=== PATIENT | female | born 2000 ===

== ENCOUNTER 2020-03-04 01:52 | Observation (INO) | payer OTHER ==
--- NOTE | 2020-03-04 02:05 | EDM.PDOC ---
ED HPI GENERAL MEDICAL PROBLEM - General Stated Complaint: LOWER LT ABDOMINAL PAIN Time Seen by Provider: 03/04/20 01:54 Source of Information: Reports: Patient History Limitations: Reports: No Limitations - History of Present Illness INITIAL COMMENTS - FREE TEXT/NARRATIVE: Patient is a 19-year-old female is complaining having severe left-sided abdominal pain which started approximately 10 PM tonight. Patient states the pain is severe in intensity and she is feeling nauseous though no vomiting or diarrhea. Patient has had no fever or chills. Has not had similar symptoms in the past. She denies any dysuria or hematuria. She has not taken anything for current pain symptoms. Patient is pacing the room and appears very uncomfortable. No past surgical history and she is not sexually active. Onset: Today Duration: Getting Worse Location: Reports: Abdomen Quality: Reports: Ache, Sharp Severity: Severe Improves with: Reports: None Worsens with: Reports: None Associated Symptoms: Reports: No Other Symptoms Left Flank Pain Score (Numeric/FACES): 9 - Related Data Allergies Allergy/AdvReac Type Severity Reaction Status Date / Time No Known Allergies Allergy Verified 03/04/20 02:06 Home Meds: Home Meds . [No Known Home Meds] 03/04/20 [History] ED ROS GENERAL - Review of Systems Review Of Systems: Comprehensive ROS is negative, except as noted in HPI. ED EXAM, GI/ABD - Physical Exam Exam: See Below Exam Limited By: No Limitations General Appearance: Moderate Distress, Other (Secondary to abdominal pain.) Head: Atraumatic, Normocephalic Neck: Normal Inspection, Supple Respiratory/Chest: No Respiratory Distress, Lungs Clear, Normal Breath Sounds, No Accessory Muscle Use Cardiovascular: Regular Rate, Rhythm, No JVD GI/Abdominal Exam: Normal Bowel Sounds, Soft, No Organomegaly, Tender. No: Distended, Guarding, Rebound, Abnormal Bowel Sounds Back Exam: Normal Inspection. No: CVA Tenderness (L), CVA Tenderness (R) Extremities: Normal Inspection Neurological: Alert, Oriented Psychiatric: Normal Affect Skin Exam: Warm, Dry, Normal Color Course - Vital Signs Text/Narrative:: She has a mildly elevated white blood cell count. CT scan shows she has a very large right adnexal cystic cyst that is approximately 14 x 9 x 11 cm. Her kidneys and ureters were both normal. Patient required multiple doses of pain meds including Toradol fentanyl and Dilaudid to get her under control of her pain symptoms. She was discussed with Dr. Shelby who is on-call for [facility] who wanted a Doppler ultrasound. That shows no blood flow to the right adnexa. Dr. Shelby is planning to take her to surgery this morning and will do an obvious admission. She is aware of this plan. Her pain is under good control at this moment. Last Recorded V/S: Last Vital Signs Temp 36.7 C 03/04/20 01:54 Pulse 98 03/04/20 01:54 Resp 20 03/04/20 01:54 BP Pulse Ox 98 03/04/20 01:54 - Orders/Labs/Meds Orders: Active Orders 24 hr Category Date Time Status Admission Status [Patient Status] [ADT] Stat ADT 03/04/20 06:21 Ordered Labs: Laboratory Tests 03/04/20 03/04/20 03/04/20 Range/Units 02:10 02:10 04:00 WBC 13.96 H (4.0-11.0) K/uL RBC 4.68 (4.30-5.90) M/uL Hgb 14.1 (12.0-16.0) g/dL Hct 40.1 (36.0-46.0) % MCV 85.7 (80.0-98.0) fL MCH 30.1 (27.0-32.0) pg MCHC 35.2 (31.0-37.0) g/dL RDW Std Deviation 37.7 (28.0-62.0) fl RDW Coeff of [place] 12 (11.0-15.0) % Plt Count 222 (150-400) K/uL MPV 10.00 (7.40-12.00) fL Neut % (Auto) 79.6 (48.0-80.0) % Lymph % (Auto) 15.6 L (16.0-40.0) % [place] % (Auto) 3.5 (0.0-15.0) % Eos % (Auto) 1.2 (0.0-7.0) % Baso % (Auto) 0.1 (0.0-1.5) % Neut # (Auto) 11.1 H (1.4-5.7) K/uL Lymph # (Auto) 2.2 (0.6-2.4) K/uL [place] # (Auto) 0.5 (0.0-0.8) K/uL Eos # (Auto) 0.2 (0.0-0.7) K/uL Baso # (Auto) 0.0 (0.0-0.1) K/uL Nucleated RBC % 0.0 /100WBC Nucleated RBCs # 0 K/uL Sodium 137 (136-145) mmol/L Potassium 3.3 L (3.5-5.1) mmol/L Chloride 101 (98-107) mmol/L Carbon Dioxide 23.7 (21.0-32.0) mmol/L BUN 11 (7.0-18.0) mg/dL Creatinine 0.8 (0.6-1.0) mg/dL Est Cr Clr Drug Dosing 87.98 mL/min Estimated GFR (MDRD) > 60.0 ml/min Glucose 145 H (74-106) mg/dL Calcium 8.9 (8.5-10.1) mg/dL Total Bilirubin 0.4 (0.2-1.0) mg/dL AST 18 (15-37) IU/L ALT 30 (14-63) IU/L Alkaline Phosphatase 48 (46-116) U/L Total Protein 7.6 (6.4-8.2) g/dL Albumin 4.3 (3.4-5.0) g/dL Globulin 3.3 (2.6-4.0) g/dL Albumin/Globulin Ratio 1.3 (0.9-1.6) Lipase 87 (73-393) U/L HCG, Quant < 1.0 mIU/mL Urine Color YELLOW Urine Appearance SLT CLOUDY Urine pH 8.5 H (5.0-8.0) Ur Specific [place] 1.010 (1.001-1.035) Urine Protein NEGATIVE (NEGATIVE) mg/dL Urine Glucose (UA) NEGATIVE (NEGATIVE) mg/dL Urine Ketones NEGATIVE (NEGATIVE) mg/dL Urine Occult Blood NEGATIVE (NEGATIVE) Urine Nitrite NEGATIVE (NEGATIVE) Urine Bilirubin NEGATIVE (NEGATIVE) Urine Urobilinogen 0.2 (<2.0) EU/dL Ur Leukocyte Esterase TRACE H (NEGATIVE) Urine RBC 0-1 (0-2/HPF) Urine WBC 0-2 (0-5/HPF) Ur Epithelial Cells FEW (NONE-FEW) Urine Bacteria FEW (NEGATIVE) Meds: Medications Discontinued Medications Generic Name Dose Route Start Last Admin Trade Name Serene PRN Reason Stop Dose Admin Fentanyl 50 mcg 03/04/20 02:17 03/04/20 02:23 Fentanyl IVPUSH 03/04/20 02:18 50 mcg ONETIME ONE Administration Fentanyl 50 mcg 03/04/20 03:31 03/04/20 03:38 Sublimaze IVPUSH 03/04/20 03:32 50 mcg ONETIME ONE Administration Hydromorphone HCl 1 mg 03/04/20 04:29 Dilaudid IVPUSH 03/04/20 04:30 ONETIME ONE Sodium Chloride 1,000 mls @ 999 mls/hr 03/04/20 02:09 03/04/20 02:22 Normal Saline IV 03/04/20 03:09 999 mls/hr .BOLUS ONE Administration Ketorolac Tromethamine 30 mg 03/04/20 02:09 03/04/20 02:22 Toradol IVPUSH 03/04/20 02:10 30 mg ONETIME ONE Administration Departure - Departure Time of Disposition: 06:24 Disposition: Refer to Observation Condition: Good Clinical Impression: Ovarian torsion, Adnexal mass - Discharge Information Referrals: PCP,None [Primary Care Provider] - Sepsis Event Note - Focused Exam Vital Signs: Vital Signs Temp Pulse Resp Pulse Ox 03/04/20 01:54 36.7 C 98 20 98 Date Exam was Performed: 03/04/20 Time Exam was Performed: 06:24 - My Orders Last 24 Hours: My Active Orders 03/04/20 06:21 Admission Status [Patient Status] [ADT] Stat - Assessment/Plan Last 24 Hours: My Active Orders 03/04/20 06:21 Admission Status [Patient Status] [ADT] Stat
[2020-03-04] MEDS ORDERED: Sodium Chloride 0.9% 1,000 ML IV ONE (02:09)
[2020-03-04] MEDS ORDERED: Ketorolac 30 MG/ML SDV IVPUSH ONE (02:09)
[2020-03-04] MEDS ORDERED: fentaNYL 50 MCG/ML SDV IVPUSH ONE (02:17)
[2020-03-04 02:49] LABS: BLOOD UREA NITROGEN,BUN 11 mg/dL (7.0-18.0); CARBON DIOXIDE,CO2 23.7 mmol/L (21.0-32.0); CHLORIDE,CL 101 mmol/L (98-107); GLUCOSE RANDOM 145 mg/dL (74-106); LIPASE 87 U/L (73-393); POTASSIUM,K 3.3 mmol/L (3.5-5.1); SODIUM,NA 137 mmol/L (136-145)
[2020-03-04] MEDS ORDERED: fentaNYL 100 MCG/2 ML SDV IVPUSH ONE (03:31)
--- NOTE | 2020-03-04 03:50 | CT ---
INDICATION: Left lower quadrant pain TECHNIQUE: CT Abdomen and pelvis with i.v. contrast. Coronal and sagittal reformats were obtained. CONTRAST: 100 mL Isovue 370 COMPARISON: None FINDINGS: Lower chest: Unremarkable. Liver: Unremarkable. Spleen: Unremarkable. Pancreas: Unremarkable. Gallbladder: Unremarkable. Kidney: There is a 1.2 cm cyst in the lower pole of the right kidney. Both kidneys are normal in enhancement. Adrenal: Unremarkable. Bowel: Unremarkable. The appendix is normal in appearance and size. Vascular: Unremarkable. Lymph: Unremarkable. Peritoneum: Unremarkable. No pneumoperitoneum is seen. A small amount of pelvic ascites is present. Pelvis: There is a large cystic mass present in the right adnexa measuring 14.3 x 11.4 x 14.4 cm (AP x RL x CC). There is a large cystic component along its superior margin and along the inferior margin there is a region of heterogeneous, ring-like enhancement seen. Soft tissue: Unremarkable. Bone: Unremarkable for age. IMPRESSION: 1. There is a large cystic mass present in the right adnexa measuring 14.3 x 11.4 x 14.4 cm (AP x RL x CC). There is a large cystic component along its superior margin and along the inferior margin there is a region of heterogeneous, ring-like enhancement seen. Surgical consultation for resection is recommended and to exclude ovarian torsion from lead mass. Dictated by Silverio Rucker MD @ 03/04/2020 3:48:05 AM Please note that all CT scans at this facility use dose modulation, iterative reconstruction, and/or weight-based dosing when appropriate to reduce radiation dose to as low as reasonably achievable. Dictated by: Silverio Rucker MD @ 03/04/2020 03:48:16 (Electronically Signed)
[2020-03-04] MEDS ORDERED: HYDROmorphone 2 MG/ML Syringe IVPUSH ONE (04:29)
--- NOTE | 2020-03-04 06:01 | US ---
INDICATION: Lower quadrant pain TECHNIQUE: Ultrasound pelvis transabdominal. Real-time stallings scale sonographic images with spectral and color Doppler imaging of the ovaries were obtained. COMPARISON: CT today FINDINGS: Uterus: 8.3 x 6 x 4 3 cm. Normal echotexture of the myometrium noted with no masses are seen. Endometrium: 13 mm. No sign of endometrial mass or fluid present. Right ovary: The right ovary cannot be identified with confidence. There is a large anechoic cystic mass in the right adnexa measuring 13.6 x 6 x 9.2 cm. A heterogeneous echogenic structure anterior to the uterus and interposed between the uterus and the cystic lesion which may represent an enlarged right ovary. Doppler blood flow cannot be demonstrate. Left ovary: The left ovary cannot be identified with confidence. Cul-de-sac: Small amount of pelvic ascites is seen. IMPRESSION: 1. Neither ovary can be identified with confidence. 2. There is a large cystic lesion and echogenic lesion in the right adnexa corresponding to the findings on recent CT. Doppler blood flow could not be demonstrated within this structure. When compared to the CT, these lesions likely arise from the right ovary and the possibility of torsion cannot be excluded. Dictated by iSlverio Rucker MD @ 03/04/2020 5:59:34 AM Dictated by: Silverio Rucker MD @ 03/04/2020 05:59:42 (Electronically Signed)
[2020-03-04] MEDS ORDERED: Lactated Ringers 1,000 ML IV SCH (07:00)
[2020-03-04] MEDS ORDERED: Iopamidol 755 Mg/ML 100 ML Bottle IVPUSH ONE (07:15)
[2020-03-04] MEDS ORDERED: Sugammadex Sodium 200 MG/2 ML VIAL ONE (07:22)
[2020-03-04] MEDS ORDERED: fentaNYL 250 MCG/5 ML SDV ONE (07:24)
[2020-03-04] MEDS ORDERED: Ondansetron 4 MG/2 ML SDV ONE (07:24)
[2020-03-04] MEDS ORDERED: Rocuronium 100 MG/10 ML Syringe ONE (07:24)
[2020-03-04] MEDS ORDERED: Midazolam 1 MG/ML 2 ML SDV ONE (07:24)
[2020-03-04] MEDS ORDERED: Glycopyrrolate 0.2 MG/ML SDV ONE (07:24)
[2020-03-04] MEDS ORDERED: Ketorolac 30 MG/ML SDV ONE (07:24)
[2020-03-04] MEDS ORDERED: Succinylcholine/Sod PF 100 MG/5 ML SYRINGE IV ONE (07:24)
[2020-03-04] MEDS ORDERED: Lidocaine 2% 5 ML SDV ONE (07:24)
[2020-03-04] MEDS ORDERED: Propofol 200 MG/20 ML SDV ONE (07:24)
[2020-03-04] MEDS ORDERED: fentaNYL 100 MCG/2 ML SDV IVPUSH PRN (07:49)
[2020-03-04] MEDS ORDERED: Acetaminophen 1,000 MG in Premix Bag 1 BAG IV PRN (07:50)
--- NOTE | 2020-03-04 08:58 | PCM.HP.2 ---
H&P History of Present Illness - General Date of Service: 03/04/20 Admit Problem/Dx: Admission Diagnosis/Problem Admission Diagnosis/Problem Ovarian dysfunction Source of Information: Patient History Limitations: Reports: No Limitations - History of Present Illness Improves with: Reports: None Worsens with: Reports: None Associated Symptoms: Reports: No Other Symptoms Left Flank Pain Score (Numeric/FACES): 2 - Related Data Allergies/Adverse Reactions: Allergies Allergy/AdvReac Type Severity Reaction Status Date / Time No Known Allergies Allergy Verified 03/04/20 07:09 Home Medications: Home Meds Ascorbic Acid [Vitamin C] 1,000 mg PO DAILY 03/04/20 [History] Fish Oil/[place]-3 Fatty Acids [Fish Oil 1,000 MG] 1 each PO DAILY 03/04/20 [ History] Magnesium Amino Acid Chelate [Magnesium] 100 mg PO DAILY 03/04/20 [History] Past Medical History - Infectious Disease History Infectious Disease History: Reports: Chicken Pox Social & Family History - Family History Family Medical History: Noncontributory - Tobacco Use Smoking Status *Q: Never Smoker Second Hand Smoke Exposure: Yes - Caffeine Use Caffeine Use: Reports: None - Recreational Drug Use Recreational Drug Use: No H&P Review of Systems - Review of Systems: Review Of Systems: See Below General: Reports: No Symptoms HEENT: Reports: No Symptoms Pulmonary: Reports: No Symptoms Cardiovascular: Reports: No Symptoms Gastrointestinal: Reports: No Symptoms Genitourinary: Reports: No Symptoms Musculoskeletal: Reports: No Symptoms Skin: Reports: No Symptoms Psychiatric: Reports: No Symptoms Neurological: Reports: No Symptoms Hematologic/Lymphatic: Reports: No Symptoms Immunologic: Reports: No Symptoms Exam - Exam Exam: See Below - Vital Signs Vital Signs: Last Vital Signs Temp 36.6 C 03/04/20 07:08 Pulse 82 03/04/20 07:08 Resp 14 03/04/20 07:08 BP 118/79 03/04/20 07:08 Pulse Ox 98 03/04/20 07:08 Weight: 83.4 kg - Exam General: Alert, Oriented, 4 HEENT: PERRLA, Hearing Intact, Mucosa Moist & [place], Nares Patent, Normal Nasal Septum, Posterior Pharynx Clear, Conjunctiva Clear, EOMI, EACs Clear, TMs Clear Neck: Supple, Trachea Midline, 2 Lungs: Clear to Auscultation, Normal Respiratory Effort Cardiovascular: Regular Rate, Regular Rhythm GI/Abdominal Exam: Normal Bowel Sounds, Soft, No Organomegaly, No Distention, No Abnormal Bruit, No Mass, Pelvis Stable (Female) Exam: Normal External Exam, Normal Speculum Exam, Normal Bimanual Exam Rectal (Female) Exam: Normal Exam, Normal Rectal Tone Back Exam: Normal Inspection, Full Range of Motion, NT Extremities: Normal Inspection, Normal Range of Motion, Non-Tender, No Pedal Edema, Normal Capillary Refill Skin: Warm, Dry, Intact Neurological: Cranial Nerves Intact, Reflexes Equal Bilateral Neuro Extensive - Mental Status: Alert, Oriented x3, Normal Mood/Affect, Normal Cognition Neuro Extensive - Motor, Sensory, Reflexes: CN II-XII Intact, Normal Gait, Normal Reflexes Psychiatric: Alert, Normal Affect, Normal Mood - Patient Data Lab Results Last 24 hrs: Laboratory Results - last 24 hr 03/04/20 03/04/20 03/04/20 Range/Units 02:10 02:10 04:00 WBC 13.96 H (4.0-11.0) K/uL RBC 4.68 (4.30-5.90) M/uL Hgb 14.1 (12.0-16.0) g/dL Hct 40.1 (36.0-46.0) % MCV 85.7 (80.0-98.0) fL MCH 30.1 (27.0-32.0) pg MCHC 35.2 (31.0-37.0) g/dL RDW Std Deviation 37.7 (28.0-62.0) fl RDW Coeff of [place] 12 (11.0-15.0) % Plt Count 222 (150-400) K/uL MPV 10.00 (7.40-12.00) fL Neut % (Auto) 79.6 (48.0-80.0) % Lymph % (Auto) 15.6 L (16.0-40.0) % [place] % (Auto) 3.5 (0.0-15.0) % Eos % (Auto) 1.2 (0.0-7.0) % Baso % (Auto) 0.1 (0.0-1.5) % Neut # (Auto) 11.1 H (1.4-5.7) K/uL Lymph # (Auto) 2.2 (0.6-2.4) K/uL [place] # (Auto) 0.5 (0.0-0.8) K/uL Eos # (Auto) 0.2 (0.0-0.7) K/uL Baso # (Auto) 0.0 (0.0-0.1) K/uL Nucleated RBC % 0.0 /100WBC Nucleated RBCs # 0 K/uL Sodium 137 (136-145) mmol/L Potassium 3.3 L (3.5-5.1) mmol/L Chloride 101 (98-107) mmol/L Carbon Dioxide 23.7 (21.0-32.0) mmol/L BUN 11 (7.0-18.0) mg/dL Creatinine 0.8 (0.6-1.0) mg/dL Est Cr Clr Drug Dosing 87.98 mL/min Estimated GFR (MDRD) > 60.0 ml/min Glucose 145 H (74-106) mg/dL POC Glucose (60-110) mg/dL Calcium 8.9 (8.5-10.1) mg/dL Total Bilirubin 0.4 (0.2-1.0) mg/dL AST 18 (15-37) IU/L ALT 30 (14-63) IU/L Alkaline Phosphatase 48 (46-116) U/L Total Protein 7.6 (6.4-8.2) g/dL Albumin 4.3 (3.4-5.0) g/dL Globulin 3.3 (2.6-4.0) g/dL Albumin/Globulin Ratio 1.3 (0.9-1.6) Lipase 87 (73-393) U/L HCG, Quant < 1.0 mIU/mL Urine Color YELLOW Urine Appearance SLT CLOUDY Urine pH 8.5 H (5.0-8.0) Ur Specific [place] 1.010 (1.001-1.035) Urine Protein NEGATIVE (NEGATIVE) mg/dL Urine Glucose (UA) NEGATIVE (NEGATIVE) mg/dL Urine Ketones NEGATIVE (NEGATIVE) mg/dL Urine Occult Blood NEGATIVE (NEGATIVE) Urine Nitrite NEGATIVE (NEGATIVE) Urine Bilirubin NEGATIVE (NEGATIVE) Urine Urobilinogen 0.2 (<2.0) EU/dL Ur Leukocyte Esterase TRACE H (NEGATIVE) Urine RBC 0-1 (0-2/HPF) Urine WBC 0-2 (0-5/HPF) Ur Epithelial Cells FEW (NONE-FEW) Urine Bacteria FEW (NEGATIVE) 03/04/20 Range/Units 07:59 WBC (4.0-11.0) K/uL RBC (4.30-5.90) M/uL Hgb (12.0-16.0) g/dL Hct (36.0-46.0) % MCV (80.0-98.0) fL MCH (27.0-32.0) pg MCHC (31.0-37.0) g/dL RDW Std Deviation (28.0-62.0) fl RDW Coeff of [place] (11.0-15.0) % Plt Count (150-400) K/uL MPV (7.40-12.00) fL Neut % (Auto) (48.0-80.0) % Lymph % (Auto) (16.0-40.0) % [place] % (Auto) (0.0-15.0) % Eos % (Auto) (0.0-7.0) % Baso % (Auto) (0.0-1.5) % Neut # (Auto) (1.4-5.7) K/uL Lymph # (Auto) (0.6-2.4) K/uL [place] # (Auto) (0.0-0.8) K/uL Eos # (Auto) (0.0-0.7) K/uL Baso # (Auto) (0.0-0.1) K/uL Nucleated RBC % /100WBC Nucleated RBCs # K/uL Sodium (136-145) mmol/L Potassium (3.5-5.1) mmol/L Chloride (98-107) mmol/L Carbon Dioxide (21.0-32.0) mmol/L BUN (7.0-18.0) mg/dL Creatinine (0.6-1.0) mg/dL Est Cr Clr Drug Dosing mL/min Estimated GFR (MDRD) ml/min Glucose (74-106) mg/dL POC Glucose 95 (60-110) mg/dL Calcium (8.5-10.1) mg/dL Total Bilirubin (0.2-1.0) mg/dL AST (15-37) IU/L ALT (14-63) IU/L Alkaline Phosphatase (46-116) U/L Total Protein (6.4-8.2) g/dL Albumin (3.4-5.0) g/dL Globulin (2.6-4.0) g/dL Albumin/Globulin Ratio (0.9-1.6) Lipase (73-393) U/L HCG, Quant mIU/mL Urine Color Urine Appearance Urine pH (5.0-8.0) Ur Specific [place] (1.001-1.035) Urine Protein (NEGATIVE) mg/dL Urine Glucose (UA) (NEGATIVE) mg/dL Urine Ketones (NEGATIVE) mg/dL Urine Occult Blood (NEGATIVE) Urine Nitrite (NEGATIVE) Urine Bilirubin (NEGATIVE) Urine Urobilinogen (<2.0) EU/dL Ur Leukocyte Esterase (NEGATIVE) Urine RBC (0-2/HPF) Urine WBC (0-5/HPF) Ur Epithelial Cells (NONE-FEW) Urine Bacteria (NEGATIVE) Result Diagrams: 03/04/20 02:10 03/04/20 02:10 Sepsis Event Note - Evaluation Sepsis Screening Result: No Definite Risk - Focused Exam Vital Signs: Vital Signs Temp Pulse Resp BP Pulse Ox 03/04/20 07:08 36.6 C 82 14 118/79 98 03/04/20 06:46 75 12 106/58 L 97 03/04/20 04:30 16 116/60 98 03/04/20 03:30 79 16 137/79 97 03/04/20 02:30 87 18 159/62 H 97 03/04/20 01:54 36.7 C 98 20 98 Date Exam was Performed: 03/04/20 Time Exam was Performed: 08:55 Problem List Initiated/Reviewed/Updated: Yes Orders Last 24hrs: Active Orders 24 hr Category Date Time Status Admission Status [Patient Status] [ADT] Stat ADT 03/04/20 06:21 Active Vital Signs [RC] Q4H Care 03/04/20 06:51 Active NPO [Nothing Per Oral Diet] [DIET] Diet 03/04/20 Breakfast Active Acetaminophen [Ofirmev] 1,000 mg Med 03/04/20 07:50 Active Premix Bag 1 bag IV Q6H Lactated Ringers [Ringers, Lactated] 1,000 ml Med 03/04/20 07:00 Active IV ASDIRECTED fentaNYL [Sublimaze] Med 03/04/20 07:49 Active 50 mcg IVPUSH Q5M PRN Medication Orders Fentanyl (Sublimaze) 50 mcg IVPUSH Q5M PRN PRN Reason: Pain Lactated Ringer's (Ringers, Lactated) 1,000 mls @ 125 mls/hr IV ASDIRECTED [facility] Last Admin: 03/04/20 07:13 Dose: 125 mls/hr Acetaminophen 1,000 mg/ Premix 100 mls @ 400 mls/hr IV Q6H PRN PRN Reason: Pain Last Admin: 03/04/20 08:19 Dose: 400 mls/hr Assessment/Plan Comment:: aaaaaaaabdominal pain possible torsion of the ovary.
[2020-03-04] MEDS ORDERED: fentaNYL 100 MCG/2 ML SDV ONE (09:50)
[2020-03-04] MEDS ORDERED: Octyl 2-Cyanoacrylate 1 Tube ONE (10:23)
--- NOTE | 2020-03-04 10:55 | PCM.OPNOTE ---
- General Post-Op/Procedure Note Date of Surgery/Procedure: 03/04/20 Operative Procedure(s): Dignostic Laparoscopy, L. salpengo-oopherectomy Post-Op Diagnosis: Same Anesthesia Technique: General ET Tube Primary Surgeon: Roni Shelby EBL in mLs: 100 Complications: None Condition: Good Free Text/Narrative:: Intake & Output 03/03/20 03/04/20 03/04/20 22:59 06:59 14:59 Intake Total 100 Balance 100
--- NOTE | 2020-03-04 10:56 | PCM.DCSUM1 ---
Discharge Summary - Hospital Course Diagnosis: Stroke: No - Discharge Data Discharge Date: 03/04/20 Discharge Disposition: Home, Self-Care 01 Condition: Good - Referral to Home Health Primary Care Physician: PCP None - Patient Summary/Data Operative Procedure(s) Performed: Dignostic Laparoscopy, L. salpengo- oopherectomy - Patient Instructions Diet: Usual Diet as Tolerated Activity: As Tolerated Driving: Do Not Drive Showering/Bathing: May Shower Wound/Incision Care: Keep Operative Site/Wound Site Clean and Dry Notify Provider of: Fever, Increased Pain - Discharge Plan Home Medications: Home Meds Ascorbic Acid [Vitamin C] 1,000 mg PO DAILY 03/04/20 [History] Fish Oil/[place]-3 Fatty Acids [Fish Oil 1,000 MG] 1 each PO DAILY 03/04/20 [ History] Magnesium Amino Acid Chelate [Magnesium] 100 mg PO DAILY 03/04/20 [History] Referrals: Roni Shelby MD [Physician] - - Discharge Summary/Plan Comment DC Time >30 min.: Yes - General Info Date of Service: 03/04/20 Functional Status: Reports: Pain Controlled - Review of Systems General: Reports: No Symptoms HEENT: Reports: No Symptoms Pulmonary: Reports: No Symptoms Cardiovascular: Reports: No Symptoms Gastrointestinal: Reports: No Symptoms Genitourinary: Reports: No Symptoms Musculoskeletal: Reports: No Symptoms Skin: Reports: No Symptoms Neurological: Reports: No Symptoms Psychiatric: Reports: No Symptoms - Patient Data Vitals - Most Recent: Last Vital Signs Temp 36.6 C 03/04/20 07:08 Pulse 82 03/04/20 07:08 Resp 14 03/04/20 07:08 BP 118/79 03/04/20 07:08 Pulse Ox 98 03/04/20 07:08 Weight - Most Recent: 83.4 kg I&O - Last 24 hours: Intake & Output 03/03/20 03/04/20 03/04/20 22:59 06:59 14:59 Intake Total 100 Balance 100 Lab Results - Last 24 hrs: Laboratory Results - last 24 hr 03/04/20 03/04/20 03/04/20 Range/Units 02:10 02:10 04:00 WBC 13.96 H (4.0-11.0) K/uL RBC 4.68 (4.30-5.90) M/uL Hgb 14.1 (12.0-16.0) g/dL Hct 40.1 (36.0-46.0) % MCV 85.7 (80.0-98.0) fL MCH 30.1 (27.0-32.0) pg MCHC 35.2 (31.0-37.0) g/dL RDW Std Deviation 37.7 (28.0-62.0) fl RDW Coeff of [place] 12 (11.0-15.0) % Plt Count 222 (150-400) K/uL MPV 10.00 (7.40-12.00) fL Neut % (Auto) 79.6 (48.0-80.0) % Lymph % (Auto) 15.6 L (16.0-40.0) % Patrick % (Auto) 3.5 (0.0-15.0) % Eos % (Auto) 1.2 (0.0-7.0) % Baso % (Auto) 0.1 (0.0-1.5) % Neut # (Auto) 11.1 H (1.4-5.7) K/uL Lymph # (Auto) 2.2 (0.6-2.4) K/uL Patrick # (Auto) 0.5 (0.0-0.8) K/uL Eos # (Auto) 0.2 (0.0-0.7) K/uL Baso # (Auto) 0.0 (0.0-0.1) K/uL Nucleated RBC % 0.0 /100WBC Nucleated RBCs # 0 K/uL Sodium 137 (136-145) mmol/L Potassium 3.3 L (3.5-5.1) mmol/L Chloride 101 (98-107) mmol/L Carbon Dioxide 23.7 (21.0-32.0) mmol/L BUN 11 (7.0-18.0) mg/dL Creatinine 0.8 (0.6-1.0) mg/dL Est Cr Clr Drug Dosing 87.98 mL/min Estimated GFR (MDRD) > 60.0 ml/min Glucose 145 H (74-106) mg/dL POC Glucose (60-110) mg/dL Calcium 8.9 (8.5-10.1) mg/dL Total Bilirubin 0.4 (0.2-1.0) mg/dL AST 18 (15-37) IU/L ALT 30 (14-63) IU/L Alkaline Phosphatase 48 (46-116) U/L Total Protein 7.6 (6.4-8.2) g/dL Albumin 4.3 (3.4-5.0) g/dL Globulin 3.3 (2.6-4.0) g/dL Albumin/Globulin Ratio 1.3 (0.9-1.6) Lipase 87 (73-393) U/L HCG, Quant < 1.0 mIU/mL Urine Color YELLOW Urine Appearance SLT CLOUDY Urine pH 8.5 H (5.0-8.0) Ur Specific [place] 1.010 (1.001-1.035) Urine Protein NEGATIVE (NEGATIVE) mg/dL Urine Glucose (UA) NEGATIVE (NEGATIVE) mg/dL Urine Ketones NEGATIVE (NEGATIVE) mg/dL Urine Occult Blood NEGATIVE (NEGATIVE) Urine Nitrite NEGATIVE (NEGATIVE) Urine Bilirubin NEGATIVE (NEGATIVE) Urine Urobilinogen 0.2 (<2.0) EU/dL Ur Leukocyte Esterase TRACE H (NEGATIVE) Urine RBC 0-1 (0-2/HPF) Urine WBC 0-2 (0-5/HPF) Ur Epithelial Cells FEW (NONE-FEW) Urine Bacteria FEW (NEGATIVE) 03/04/20 Range/Units 07:59 WBC (4.0-11.0) K/uL RBC (4.30-5.90) M/uL Hgb (12.0-16.0) g/dL Hct (36.0-46.0) % MCV (80.0-98.0) fL MCH (27.0-32.0) pg MCHC (31.0-37.0) g/dL RDW Std Deviation (28.0-62.0) fl RDW Coeff of [place] (11.0-15.0) % Plt Count (150-400) K/uL MPV (7.40-12.00) fL Neut % (Auto) (48.0-80.0) % Lymph % (Auto) (16.0-40.0) % Patrick % (Auto) (0.0-15.0) % Eos % (Auto) (0.0-7.0) % Baso % (Auto) (0.0-1.5) % Neut # (Auto) (1.4-5.7) K/uL Lymph # (Auto) (0.6-2.4) K/uL Patrick # (Auto) (0.0-0.8) K/uL Eos # (Auto) (0.0-0.7) K/uL Baso # (Auto) (0.0-0.1) K/uL Nucleated RBC % /100WBC Nucleated RBCs # K/uL Sodium (136-145) mmol/L Potassium (3.5-5.1) mmol/L Chloride (98-107) mmol/L Carbon Dioxide (21.0-32.0) mmol/L BUN (7.0-18.0) mg/dL Creatinine (0.6-1.0) mg/dL Est Cr Clr Drug Dosing mL/min Estimated GFR (MDRD) ml/min Glucose (74-106) mg/dL POC Glucose 95 (60-110) mg/dL Calcium (8.5-10.1) mg/dL Total Bilirubin (0.2-1.0) mg/dL AST (15-37) IU/L ALT (14-63) IU/L Alkaline Phosphatase (46-116) U/L Total Protein (6.4-8.2) g/dL Albumin (3.4-5.0) g/dL Globulin (2.6-4.0) g/dL Albumin/Globulin Ratio (0.9-1.6) Lipase (73-393) U/L HCG, Quant mIU/mL Urine Color Urine Appearance Urine pH (5.0-8.0) Ur Specific [place] (1.001-1.035) Urine Protein (NEGATIVE) mg/dL Urine Glucose (UA) (NEGATIVE) mg/dL Urine Ketones (NEGATIVE) mg/dL Urine Occult Blood (NEGATIVE) Urine Nitrite (NEGATIVE) Urine Bilirubin (NEGATIVE) Urine Urobilinogen (<2.0) EU/dL Ur Leukocyte Esterase (NEGATIVE) Urine RBC (0-2/HPF) Urine WBC (0-5/HPF) Ur Epithelial Cells (NONE-FEW) Urine Bacteria (NEGATIVE) Med Orders - Current: Current Medications Fentanyl (Sublimaze) 50 mcg IVPUSH Q5M PRN PRN Reason: Pain Lactated Ringer's (Ringers, Lactated) 1,000 mls @ 125 mls/hr IV ASDIRECTED DAVID Last Admin: 03/04/20 07:13 Dose: 125 mls/hr Acetaminophen 1,000 mg/ Premix 100 mls @ 400 mls/hr IV Q6H PRN PRN Reason: Pain Last Admin: 03/04/20 08:19 Dose: 400 mls/hr Discontinued Medications Fentanyl (Fentanyl) 50 mcg IVPUSH ONETIME ONE Stop: 03/04/20 02:18 Last Admin: 03/04/20 02:23 Dose: 50 mcg Fentanyl (Sublimaze) 50 mcg IVPUSH ONETIME ONE Stop: 03/04/20 03:32 Last Admin: 03/04/20 03:38 Dose: 50 mcg Fentanyl (Sublimaze) Confirm Administered Dose 250 mcg .ROUTE .STK-MED ONE Stop: 03/04/20 07:25 Fentanyl (Sublimaze) Confirm Administered Dose 100 mcg .ROUTE .STK-MED ONE Stop: 03/04/20 09:51 Glycopyrrolate (Robinul) Confirm Administered Dose 0.2 mg .ROUTE .STK-MED ONE Stop: 03/04/20 07:25 Hydromorphone HCl (Dilaudid) 1 mg IVPUSH ONETIME ONE Stop: 03/04/20 04:30 Last Admin: 03/04/20 05:15 Dose: 1 mg Sodium Chloride (Normal Saline) 1,000 mls @ 999 mls/hr IV .BOLUS ONE Stop: 03/04/20 03:09 Last Admin: 03/04/20 02:22 Dose: 999 mls/hr Iopamidol (Isovue-370 (76%)) 100 ml IVPUSH ONETIME ONE Stop: 03/04/20 07:16 Last Admin: 03/04/20 07:16 Dose: 100 ml Ketorolac Tromethamine (Toradol) 30 mg IVPUSH ONETIME ONE Stop: 03/04/20 02:10 Last Admin: 03/04/20 02:22 Dose: 30 mg Ketorolac Tromethamine (Toradol) Confirm Administered Dose 30 mg .ROUTE .STK- MED ONE Stop: 03/04/20 07:25 Lidocaine (Xylocaine-Mpf 2%) Confirm Administered Dose 5 ml .ROUTE .STK-MED ONE Stop: 03/04/20 07:25 Midazolam HCl (Versed 1 Mg/Ml) Confirm Administered Dose 2 mg .ROUTE .STK-MED ONE Stop: 03/04/20 07:25 Octyl Cyanoacrylate (Dermabond Advance) Confirm Administered Dose 1 applic .ROUTE .STK-MED ONE Stop: 03/04/20 10:24 Ondansetron HCl (Zofran) Confirm Administered Dose 4 mg .ROUTE .STK-MED ONE Stop: 03/04/20 07:25 Propofol (Diprivan 20 Ml) Confirm Administered Dose 200 mg .ROUTE .STK-MED ONE Stop: 03/04/20 07:25 Rocuronium [place] (Zemuron) Confirm Administered Dose 100 mg .ROUTE .STK-MED ONE Stop: 03/04/20 07:25 Sugammadex Sodium (Bridion) Confirm Administered Dose 200 mg .ROUTE .STK-MED ONE Stop: 03/04/20 07:23 - Exam General: Reports: Alert, Oriented HEENT: Reports: Pupils Equal, Pupils Reactive, EOMI, Mucous Membr. Moist/[place] Neck: Reports: Supple Lungs: Reports: Clear to Auscultation, Normal Respiratory Effort Cardiovascular: Reports: Regular Rate, Regular Rhythm GI/Abdominal Exam: Normal Bowel Sounds, Soft, Non-Tender, No Organomegaly, No Distention, No Abnormal Bruit, No Mass, Pelvis Stable (Female) Exam: Normal External Exam, Normal Speculum Exam, Normal Bimanual Exam Rectal (Female) Exam: Normal Exam, Normal Rectal Tone Back Exam: Reports: Normal Inspection, Full Range of Motion Extremities: Normal Inspection, Normal Range of Motion, Non-Tender, No Pedal Edema, Normal Capillary Refill Skin: Reports: Warm, Dry, Intact Wound/Incisions: Reports: Healing Well Neurological: Reports: No New Focal Deficit Psy/Mental Status: Reports: Alert, Normal Affect, Normal Mood
--- NOTE | 2020-03-04 11:16 | PCM.PREANE ---
Preanesthetic Assessment - Anesthesia/Transfusion/Family Hx Anesthesia History: No Prior Anesthesia Family History of Anesthesia Reaction: No Transfusion History: No Prior Transfusion(s) - Physical Assessment NPO Status Date: 03/03/20 NPO Status Time: 22:00 Vital Signs: Last Vital Signs Temp 36.6 C 03/04/20 10:56 Pulse 73 03/04/20 11:01 Resp 13 03/04/20 11:01 BP 116/52 L 03/04/20 11:01 Pulse Ox 100 03/04/20 11:01 Height: 1.57 m Weight: 83.4 kg ASA Class: 1E - Lab Values: Laboratory Last Values WBC 13.96 K/uL (4.0-11.0) H 03/04/20 02:10 RBC 4.68 M/uL (4.30-5.90) 03/04/20 02:10 Hgb 14.1 g/dL (12.0-16.0) 03/04/20 02:10 Hct 40.1 % (36.0-46.0) 03/04/20 02:10 MCV 85.7 fL (80.0-98.0) 03/04/20 02:10 MCH 30.1 pg (27.0-32.0) 03/04/20 02:10 MCHC 35.2 g/dL (31.0-37.0) 03/04/20 02:10 RDW Std Deviation 37.7 fl (28.0-62.0) 03/04/20 02:10 RDW Coeff of Chandler 12 % (11.0-15.0) 03/04/20 02:10 Plt Count 222 K/uL (150-400) 03/04/20 02:10 MPV 10.00 fL (7.40-12.00) 03/04/20 02:10 Neut % (Auto) 79.6 % (48.0-80.0) 03/04/20 02:10 Lymph % (Auto) 15.6 % (16.0-40.0) L 03/04/20 02:10 [place] % (Auto) 3.5 % (0.0-15.0) 03/04/20 02:10 Eos % (Auto) 1.2 % (0.0-7.0) 03/04/20 02:10 Baso % (Auto) 0.1 % (0.0-1.5) 03/04/20 02:10 Neut # (Auto) 11.1 K/uL (1.4-5.7) H 03/04/20 02:10 Lymph # (Auto) 2.2 K/uL (0.6-2.4) 03/04/20 02:10 [place] # (Auto) 0.5 K/uL (0.0-0.8) 03/04/20 02:10 Eos # (Auto) 0.2 K/uL (0.0-0.7) 03/04/20 02:10 Baso # (Auto) 0.0 K/uL (0.0-0.1) 03/04/20 02:10 Nucleated RBC % 0.0 /100WBC 03/04/20 02:10 Nucleated RBCs # 0 K/uL 03/04/20 02:10 Sodium 137 mmol/L (136-145) 03/04/20 02:10 Potassium 3.3 mmol/L (3.5-5.1) L 03/04/20 02:10 Chloride 101 mmol/L (98-107) 03/04/20 02:10 Carbon Dioxide 23.7 mmol/L (21.0-32.0) 03/04/20 02:10 BUN 11 mg/dL (7.0-18.0) 03/04/20 02:10 Creatinine 0.8 mg/dL (0.6-1.0) 03/04/20 02:10 Est Cr Clr Drug Dosing 87.98 mL/min 03/04/20 02:10 Estimated GFR (MDRD) > 60.0 ml/min 03/04/20 02:10 Glucose 145 mg/dL (74-106) H 03/04/20 02:10 POC Glucose 95 mg/dL (60-110) 03/04/20 07:59 Calcium 8.9 mg/dL (8.5-10.1) 03/04/20 02:10 Total Bilirubin 0.4 mg/dL (0.2-1.0) 03/04/20 02:10 AST 18 IU/L (15-37) 03/04/20 02:10 ALT 30 IU/L (14-63) 03/04/20 02:10 Alkaline Phosphatase 48 U/L (46-116) 03/04/20 02:10 Total Protein 7.6 g/dL (6.4-8.2) 03/04/20 02:10 Albumin 4.3 g/dL (3.4-5.0) 03/04/20 02:10 Globulin 3.3 g/dL (2.6-4.0) 03/04/20 02:10 Albumin/Globulin Ratio 1.3 (0.9-1.6) 03/04/20 02:10 Lipase 87 U/L (73-393) 03/04/20 02:10 HCG, Quant < 1.0 mIU/mL 03/04/20 02:10 Urine Color YELLOW 03/04/20 04:00 Urine Appearance SLT CLOUDY 03/04/20 04:00 Urine pH 8.5 (5.0-8.0) H 03/04/20 04:00 Ur Specific [place] 1.010 (1.001-1.035) 03/04/20 04:00 Urine Protein NEGATIVE mg/dL (NEGATIVE) 03/04/20 04:00 Urine Glucose (UA) NEGATIVE mg/dL (NEGATIVE) 03/04/20 04:00 Urine Ketones NEGATIVE mg/dL (NEGATIVE) 03/04/20 04:00 Urine Occult Blood NEGATIVE (NEGATIVE) 03/04/20 04:00 Urine Nitrite NEGATIVE (NEGATIVE) 03/04/20 04:00 Urine Bilirubin NEGATIVE (NEGATIVE) 03/04/20 04:00 Urine Urobilinogen 0.2 EU/dL (<2.0) 03/04/20 04:00 Ur Leukocyte Esterase TRACE (NEGATIVE) H 03/04/20 04:00 Urine RBC 0-1 (0-2/HPF) 03/04/20 04:00 Urine WBC 0-2 (0-5/HPF) 03/04/20 04:00 Ur Epithelial Cells FEW (NONE-FEW) 03/04/20 04:00 Urine Bacteria FEW (NEGATIVE) 03/04/20 04:00 - Allergies Allergies/Adverse Reactions: Allergies Allergy/AdvReac Type Severity Reaction Status Date / Time No Known Allergies Allergy Verified 03/04/20 07:09 - Acknowledgements Anesthesia Type Planned: General Anesthesia Pt an Appropriate Candidate for the Planned Anesthesia: Yes Alternatives and Risks of Anesthesia Discussed w Pt/Guardian: Yes Pt/Guardian Understands and Agrees with Anesthesia Plan: Yes PreAnesthesia Questionnaire - Infectious Disease History Infectious Disease History: Reports: Chicken Pox - SUBSTANCE USE Smoking Status *Q: Never Smoker Tobacco Use Within Last Twelve Months: No Second Hand Smoke Exposure: Yes Recreational Drug Use History: No - HOME MEDS Home Medications: Home Meds Ascorbic Acid [Vitamin C] 1,000 mg PO DAILY 03/04/20 [History] Fish Oil/[place]-3 Fatty Acids [Fish Oil 1,000 MG] 1 each PO DAILY 03/04/20 [ History] Magnesium Amino Acid Chelate [Magnesium] 100 mg PO DAILY 03/04/20 [History] - CURRENT (IN HOUSE) MEDS Current Meds: Current Medications Fentanyl (Sublimaze) 50 mcg IVPUSH Q5M PRN PRN Reason: Pain Lactated Ringer's (Ringers, Lactated) 1,000 mls @ 125 mls/hr IV ASDIRECTED DAVID Last Admin: 03/04/20 07:13 Dose: 125 mls/hr Acetaminophen 1,000 mg/ Premix 100 mls @ 400 mls/hr IV Q6H PRN PRN Reason: Pain Last Admin: 03/04/20 08:19 Dose: 400 mls/hr Discontinued Medications Fentanyl (Fentanyl) 50 mcg IVPUSH ONETIME ONE Stop: 03/04/20 02:18 Last Admin: 03/04/20 02:23 Dose: 50 mcg Fentanyl (Sublimaze) 50 mcg IVPUSH ONETIME ONE Stop: 03/04/20 03:32 Last Admin: 03/04/20 03:38 Dose: 50 mcg Fentanyl (Sublimaze) Confirm Administered Dose 250 mcg .ROUTE .STK-MED ONE Stop: 03/04/20 07:25 Fentanyl (Sublimaze) Confirm Administered Dose 100 mcg .ROUTE .STK-MED ONE Stop: 03/04/20 09:51 Glycopyrrolate (Robinul) Confirm Administered Dose 0.2 mg .ROUTE .STK-MED ONE Stop: 03/04/20 07:25 Hydromorphone HCl (Dilaudid) 1 mg IVPUSH ONETIME ONE Stop: 03/04/20 04:30 Last Admin: 03/04/20 05:15 Dose: 1 mg Sodium Chloride (Normal Saline) 1,000 mls @ 999 mls/hr IV .BOLUS ONE Stop: 03/04/20 03:09 Last Admin: 03/04/20 02:22 Dose: 999 mls/hr Iopamidol (Isovue-370 (76%)) 100 ml IVPUSH ONETIME ONE Stop: 03/04/20 07:16 Last Admin: 03/04/20 07:16 Dose: 100 ml Ketorolac Tromethamine (Toradol) 30 mg IVPUSH ONETIME ONE Stop: 03/04/20 02:10 Last Admin: 03/04/20 02:22 Dose: 30 mg Ketorolac Tromethamine (Toradol) Confirm Administered Dose 30 mg .ROUTE .STK- MED ONE Stop: 03/04/20 07:25 Lidocaine (Xylocaine-Mpf 2%) Confirm Administered Dose 5 ml .ROUTE .STK-MED ONE Stop: 03/04/20 07:25 Midazolam HCl (Versed 1 Mg/Ml) Confirm Administered Dose 2 mg .ROUTE .STK-MED ONE Stop: 03/04/20 07:25 Octyl Cyanoacrylate (Dermabond Advance) Confirm Administered Dose 1 applic .ROUTE .STK-MED ONE Stop: 03/04/20 10:24 Ondansetron HCl (Zofran) Confirm Administered Dose 4 mg .ROUTE .STK-MED ONE Stop: 03/04/20 07:25 Propofol (Diprivan 20 Ml) Confirm Administered Dose 200 mg .ROUTE .STK-MED ONE Stop: 03/04/20 07:25 Rocuronium [place] (Zemuron) Confirm Administered Dose 100 mg .ROUTE .STK-MED ONE Stop: 03/04/20 07:25 Sugammadex Sodium (Bridion) Confirm Administered Dose 200 mg .ROUTE .STK-MED ONE Stop: 03/04/20 07:23
--- NOTE | 2020-03-04 11:45 | PCM.POSTAN ---
POST ANESTHESIA ASSESSMENT - MENTAL STATUS Mental Status: Alert - VITAL SIGNS Vital Signs: Last Vital Signs Temp 36.6 C 03/04/20 10:56 Pulse 67 03/04/20 11:31 Resp 15 03/04/20 11:31 BP 119/62 03/04/20 11:31 Pulse Ox 98 03/04/20 11:31 - RESPIRATORY Respiratory Status: Respiratory Rate WNL - CARDIOVASCULAR CV Status: Pulse Rate WNL - GASTROINTESTINAL GI Status: No Symptoms - POST OP HYDRATION Hydration Status: Adequate & Stable
--- NOTE | 2020-03-05 08:52 | PCM48HPAN ---
Post Anesthesia Note - EVALUATION WITHIN 48HRS OF ANESTHETIC Vital Signs in Normal Range: Yes Patient Participated in Evaluation: Yes Respiratory Function Stable: Yes Airway Patent: Yes Cardiovascular Function Stable: Yes Hydration Status Stable: Yes Pain Control Satisfactory: Yes Nausea and Vomiting Control Satisfactory: Yes Mental Status Recovered: Yes Vital Signs: Last Vital Signs Temp 36.3 C 03/04/20 16:00 Pulse 75 03/04/20 16:00 Resp 17 03/04/20 16:00 BP 117/70 03/04/20 16:00 Pulse Ox 99 03/04/20 16:00 - COMMENTS/OBSERVATIONS Free Text/Narrative:: Did well. Discharged without issues.
--- NOTE | 2020-03-05 08:59 | OR ---
SURGEON: Roni Shelby MD DATE OF PROCEDURE: 03/04/2020 PREOPERATIVE DIAGNOSIS: Pelvic pain, possible torsion of the left tube and ovary. POSTOPERATIVE DIAGNOSIS: Pelvic pain, torsion of the left tube and ovary. OPERATIONS PERFORMED: Multiple-puncture diagnostic laparoscopy and laparoscopic left salpingo- oophorectomy. PRIMARY SURGEON: Roni Shelby MD SPA HOST: OR tech. ANESTHESIA: General with endotracheal intubation, Antonino Soheila. ESTIMATED BLOOD LOSS: 100 mL. COMPLICATIONS: None. FINDINGS: A large paraovarian cyst about 10 to 15 cm in diameter and torsed and twisted several times with complete necrosis of the left tube and ovary. INDICATIONS FOR SURGERY: [place] referred to the admit note. PROCEDURE IN DETAIL: The patient was brought to the OR, properly identified, and after adequate level of anesthesia, the patient placed in lithotomy position, prepped and draped in sterile fashion as usual with an access to the abdomen and the vagina. The straight catheter was used to empty the bladder and then Hulka manipulator placed in the uterus for manipulation. The operation shifted abdominally. Stab wound done beneath the umbilicus. The Veress needle was placed in the peritoneal cavity and that cavity insufflated with 3.5 of carbon dioxide, and then utilizing the Visiport technique, 5 mm trocar was entered through the infraumbilical incision. Once was that done, 10/12 trocar was placed in the left iliac fossa and two 5 mm trocars, one suprapubically and one in the right iliac fossa, were done under direct vision. The finding is that she had 10 to 14-15 cm left paraovarian tubal cyst, and she had complete torsion of the left tube and ovary. Both the left tube and ovary were necrosed and deformed, and after undoing the torsion and waiting for 5 minutes, nothing happened and no blood supply was noted to the ovary or the tube, so we proceeded with a left salpingo-oophorectomy. First. I made a puncture in the cyst and then the cyst was drained completely to reduce the size and for easy maneuvering, and then once that was done, then the superior pedicle on the left side utilizing the Fabrice Harmonic scalpel, coagulated, transecting and resecting the tube and ovary. Once the tube and ovary were resected, it was placed in an endobag and the 10/12 laparoscopic incision enlarged a little bit and the specimen was removed through that hole. Once the specimen was removed, thorough irrigation of the pelvis was done. There was no oozing, no bleeding. The left ovary was seen peristalsing without any problem, and the right tube and ovary were completely normal. Satisfied with these findings, the abdomen was deflated. The instrument and hardware were retrieved from the abdomen and the vagina, and the multiple laparoscopic incisions were closed in layers. Instrument and sponge count was correct. The patient tolerated the procedure well, went to recovery room in stable general condition. VIRGILIO / SABINO /[id number]
== END 2020-03-04 16:30 | disposition home or self-care (01) ==
LOC: MW.ED 01:52 → MW.MS 06:21
PROVIDERS: ADMIT Obstetrics & Gynecology; ATTEND Obstetrics & Gynecology
DX: N83.53 Torsion of ovary, ovarian pedicle and fallopian tube (principal); N83.292 Other ovarian cyst, left side; N70.92 Oophoritis, unspecified; N83.8 Other noninflammatory disorders of ovary, fallopian tube and broad ligament
CPT/HCPCS: 36415; 58661; 74177; 76857; 80053; 81001; 82962; 83690; 84702; 85025; 88305; 96361; 96374; 96375; 96376; 99285; A9270; G0378; J0131; J1170; J1885; J2001; J2250; J2405; J2704; J3010; J3490; J7030; J7120; Q9967; 00840; 99284; J0330